=== PATIENT | female | born 1960 | race Caucasian/White ===

== ENCOUNTER 2019-01-11 12:21 | Outpatient (CLI) | payer MEDICARE ==
--- NOTE | 2019-01-11 14:51 | MMO ---
Bilateral MAMMO Bilat Screen [facility]. CLINICAL HISTORY: Patient is 58 years old and is seen for screening. The patient has no family history of breast cancer. The patient has no personal history of cancer. VIEWS: The views performed were: bilateral craniocaudal; bilateral craniocaudal with tomosynthesis; and bilateral mediolateral oblique with tomosynthesis. FILMS COMPARED: The present examination has been compared to a prior imaging study performed at [facility] on 10/07/2016. This study has been interpreted with the assistance of computer-aided detection. MAMMOGRAM FINDINGS: There are scattered fibroglandular densities. There are stable benign appearing calcifications seen in both breasts. There are no suspicious masses, calcifications or areas of architectural distortion. There are no suspicious masses, suspicious calcifications, or new areas of architectural distortion. IMPRESSION: THERE IS NO MAMMOGRAPHIC EVIDENCE OF MALIGNANCY. A ROUTINE FOLLOW-UP MAMMOGRAM IN 1 YEAR IS RECOMMENDED. THE RESULTS OF THIS EXAM WERE SENT TO THE PATIENT. ACR BI-RADS Category 2 - Benign finding MAMMOGRAPHY NOTE: 1. A negative mammogram report should not delay a biopsy if a dominant of clinically suspicious mass is present. 2. Approximately 10% to 15% of breast cancers are not detected by mammography. 3. Adenosis and dense breasts may obscure an underlying neoplasm. Reported by: HUY DAVIES MD Electonically Signed: [id number]
== END 2019-01-11 12:22 | disposition home or self-care (01) ==
LOC: BICMAMMO 12:21
PROVIDERS: ATTEND Family Medicine
DX: Z12.31 Encounter for screening mammogram for malignant neoplasm of breast (principal)
CPT/HCPCS: 77063; 77067

== ENCOUNTER 2021-06-21 14:04 | Outpatient (CLI) | payer MEDICARE | END 2021-06-21 14:05 | disposition home or self-care (01) | LOC: BICRAD 14:04 | PROVIDERS: ATTEND Family Medicine | DX: R06.02 Shortness of breath (principal) | CPT/HCPCS: 36415; 71046; 80053; 80061; 82306; 83036; 84439; 84443; 86140 ==

== ENCOUNTER 2021-11-11 13:30 | Outpatient (CLI) | payer MEDICARE | END 2021-11-11 13:31 | disposition home or self-care (01) | LOC: DTY/OP 13:30 | PROVIDERS: ATTEND Surgery | DX: Z01.818 Encounter for other preprocedural examination (principal); E11.69 Type 2 diabetes mellitus with other specified complication; E88.81 Metabolic syndrome and other insulin resistance; K21.9 Gastro-esophageal reflux disease without esophagitis; K44.9 Diaphragmatic hernia without obstruction or gangrene; K76.0 Fatty (change of) liver, not elsewhere classified; G47.33 Obstructive sleep apnea (adult) (pediatric); I10 Essential (primary) hypertension; E66.9 Obesity, unspecified; Z68.37 Body mass index [BMI] 37.0-37.9, adult; Z98.84 Bariatric surgery status; Z71.3 Dietary counseling and surveillance | CPT/HCPCS: 97802 ==

== ENCOUNTER 2022-01-30 10:38 | Outpatient (CLI) | payer OTHER | END 2022-01-30 10:39 | disposition home or self-care (01) | LOC: RAD 10:38 | PROVIDERS: ATTEND Internal Medicine | DX: R06.00 Dyspnea, unspecified (principal) | CPT/HCPCS: 71046 ==

== ENCOUNTER 2022-05-15 14:20 | Outpatient (CLI) | payer MEDICARE | END 2022-05-15 14:21 | disposition home or self-care (01) | LOC: BICMAMMO 14:20 | PROVIDERS: ATTEND Family Medicine | DX: Z12.31 Encounter for screening mammogram for malignant neoplasm of breast (principal); Z13.820 Encounter for screening for osteoporosis; M85.852 Other specified disorders of bone density and structure, left thigh; Z78.0 Asymptomatic menopausal state | CPT/HCPCS: 77063; 77067; 77080 ==

== ENCOUNTER 2022-05-19 15:24 | Outpatient (CLI) | payer MEDICARE | END 2022-05-19 15:25 | disposition home or self-care (01) | LOC: BICRAD 15:24 | PROVIDERS: ATTEND Family Medicine | DX: M25.562 Pain in left knee (principal); M17.12 Unilateral primary osteoarthritis, left knee ==

== ENCOUNTER 2022-06-09 15:43 | Inpatient (IN) | payer MEDICARE ==
[2022-06-23] MEDS ORDERED: Scopolamine 1.5 mg/72 hour Patch ONE (06:30)
[2022-06-23] MEDS ORDERED: cefOXitin 2 GM VIAL ONE ×2 (06:30→11:49)
[2022-06-23] MEDS ORDERED: Sodium Chloride 0.9% 100 ML ONE (06:30)
[2022-06-23] MEDS ORDERED: Bupivacaine/Epinephrine 0.25% 30 ML VIAL ONE (06:42)
[2022-06-23] MEDS ORDERED: Scopolamine 1.5 mg/72 hour Patch TOP SCH (06:45)
[2022-06-23] MEDS ORDERED: cefOXitin 2 GM in Sodium Chloride 0.9% 100 ML IVPB SCH (06:45)
[2022-06-23] MEDS ORDERED: HYDROmorphone 0.5 MG/0.5 ML SYRINGE ONE (06:55)
[2022-06-23] MEDS ORDERED: fentaNYL PF 100 MCG/2 ML SYRINGE ONE (06:55)
[2022-06-23] MEDS ORDERED: SUGAMMADEX SODIUM 200 MG/2 ML VIAL ONE (06:56)
[2022-06-23] MEDS ORDERED: Famotidine/PF 20 mg/2ml Vial ONE (07:26)
[2022-06-23] MEDS ORDERED: Indocyanine Green 25 MG/10 ML VIAL ONE ×2 (09:11→11:15)
[2022-06-23] MEDS ORDERED: PROPOFOL 200 MG/20 ML VIAL ONE (09:11)
[2022-06-23] MEDS ORDERED: Dexamethasone 20 MG/5 ML VIAL ONE (09:11)
[2022-06-23] MEDS ORDERED: Lidocaine 1% PF 5 ML VIAL ONE (09:11)
[2022-06-23] MEDS ORDERED: Rocuronium Bromide 10 MG/ML (10ML VIAL) ONE (09:11)
[2022-06-23] MEDS ORDERED: Ondansetron PF 4 MG/2 ML Vial ONE (09:11)
[2022-06-23] MEDS ORDERED: Promethazine HCl 25 MG/ML VIAL IM PRN ×2 (13:36→13:58)
[2022-06-23] MEDS ORDERED: HYDROmorphone 2 MG/ML VIAL SLOW IVP PRN (13:36)
[2022-06-23] MEDS ORDERED: Ondansetron HCl/PF 4 MG/2 ML Vial IVP PRN (13:36)
[2022-06-23] MEDS ORDERED: Dextrose 5% in Water 1,000 ML IV PRN (13:58)
[2022-06-23] MEDS ORDERED: Ondansetron PF 4 MG/2 ML Vial IVP PRN (13:58)
[2022-06-23] MEDS ORDERED: Dextrose 50% Abboject 50 ML SYRINGE SLOW IVP PRN (13:58)
[2022-06-23] MEDS ORDERED: HumaLOG 300 UNITS/3 ML VIAL SC PRN (13:58)
[2022-06-23] MEDS ORDERED: Morphine 2 MG/ML VIAL SLOW IVP PRN (13:58)
[2022-06-23] MEDS ORDERED: hydrALAZINE 20 MG/ML VIAL SLOW IVP PRN (13:58)
[2022-06-23] MEDS ORDERED: Ipratropium/Albuterol 3 ML NEB NEB PRN (13:58)
[2022-06-23] MEDS ORDERED: diphenhydrAMINE 50 MG/ML VIAL IVP PRN (13:58)
[2022-06-23] MEDS ORDERED: Hydrocodone-Acetamin 15 ML UDCUP PO PRN (13:58)
[2022-06-23] MEDS: Ketorolac Tromethamine 30 MG/ML VIAL IVP SCH ×2 (17:51→23:11)
[2022-06-23] MEDS: D5 1/2 NS w/20 mEq KCL 1,000 ML IV SCH ×2 (18:12→19:41)
[2022-06-23 18:38] VITALS: BMI 34.9
[2022-06-24] MEDS: D5 1/2 NS w/20 mEq KCL 1,000 ML IV SCH (05:27)
[2022-06-24] MEDS: Ketorolac Tromethamine 30 MG/ML VIAL IVP SCH (05:34)
[2022-06-24 06:27] LABS: #Eosinphils 0.1 thou/uL (0.0-0.7); #Lymphocytes 2.4 thou/uL (1.20-3.40); #Neutrophils 6.2 thou/uL (1.40-6.50); %Basophils 0.4 % (0.0-1.0); %Eosinophils 0.5 % (0.0-10.0); %Lymphocytes 24.5 % (21.0-51.0); %Monocytes 9.9 % (0.0-10.0); %Neutrophils 64.6 % (42.0-75.0); Hemoglobin 12.2 g/dL (12.0-16.0); Mean Corpuscular HGB CONC 32.8 g/dL (32.0-36.0); Mean Corpuscular Hemoglobin 28.4 pg (27.0-31.0); Mean Corpuscular Volume 86.6 fl (78.0-98.0); Mean Platelet Volume 7.3 fL (7.4-10.4); Platelet Count 200 10x3/uL (130-400); RBC Distribution Width 12.9 % (11.5-14.5); Red Blood Cell (RBC) Count 4.31 mill/uL (4.20-5.40); White Blood Cell (WBC) Count 9.7 10x3/uL (4.8-10.8)
[2022-06-24 06:47] LABS: Anion Gap 14 mmol/L (10-20); BUN (Urea Nitrogen) 34 mg/dL (9.8-20.1); Calc. Creatinine Clearance 61 mL/min (70-130); Calcium 8.6 mg/dL (7.8-10.44); Carbon Dioxide 24 mmol/L (23-31); Chloride 106 mmol/L (98-107); Estimated GFR 37; Glucose 77 mg/dL (80-115); Potassium 4.6 mmol/L (3.5-5.1); Sodium 139 mmol/L (136-145)
[2022-06-24] MEDS ORDERED: Pantoprazole 40 MG VIAL IVP SCH (09:00)
[2022-06-24] MEDS ORDERED: Sertraline 100 MG TAB PO SCH (09:00)
[2022-06-24] MEDS ORDERED: Bupropion 150 MG XL TAB PO SCH (09:00)
[2022-06-24 13:01] VITALS: BP 114/67; TEMP 97.6
[2022-06-24 13:07] LABS: #Eosinphils 0.1 thou/uL (0.0-0.7); #Lymphocytes 2.3 thou/uL (1.20-3.40); #Monocytes 0.9 thou/uL (0.11-0.59); #Neutrophils 6.6 thou/uL (1.40-6.50); %Basophils 0.5 % (0.0-1.0); %Eosinophils 0.7 % (0.0-10.0); %Lymphocytes 23.1 % (21.0-51.0); %Monocytes 8.8 % (0.0-10.0); %Neutrophils 66.9 % (42.0-75.0); Hemoglobin 12.3 g/dL (12.0-16.0); Mean Corpuscular HGB CONC 33.4 g/dL (32.0-36.0); Mean Corpuscular Hemoglobin 28.8 pg (27.0-31.0); Mean Corpuscular Volume 86.3 fl (78.0-98.0); Mean Platelet Volume 7.1 fL (7.4-10.4); Platelet Count 182 10x3/uL (130-400); RBC Distribution Width 12.8 % (11.5-14.5); Red Blood Cell (RBC) Count 4.26 mill/uL (4.20-5.40); White Blood Cell (WBC) Count 9.8 10x3/uL (4.8-10.8)
[2022-06-24 13:23] LABS: Anion Gap 10 mmol/L (10-20); BUN (Urea Nitrogen) 32 mg/dL (9.8-20.1); Calc. Creatinine Clearance 65 mL/min (70-130); Calcium 8.7 mg/dL (7.8-10.44); Carbon Dioxide 25 mmol/L (23-31); Chloride 107 mmol/L (98-107); Estimated GFR 40; Glucose 99 mg/dL (80-115); Potassium 4.4 mmol/L (3.5-5.1); Sodium 138 mmol/L (136-145)
== END 2022-06-24 16:03 | disposition home or self-care (01) | DRG 621 ==
LOC: EDSTATUS 15:44 → SURG A 06-23 06:00
PROVIDERS: ADMIT Surgery; ATTEND Surgery
PROC: 0D164ZA Bypass Stomach to Jejunum, Percutaneous Endoscopic Approach (ICD-10-PCS; principal; 2022-06-23)
PROC: 0DNW4ZZ Release Peritoneum, Percutaneous Endoscopic Approach (ICD-10-PCS; 2022-06-23)
PROC: 8E0W4CZ Robotic Assisted Procedure of Trunk Region, Percutaneous Endoscopic Approach (ICD-10-PCS; 2022-06-23)
DX: E66.01 Morbid (severe) obesity due to excess calories (principal); E88.81 Metabolic syndrome and other insulin resistance; E11.9 Type 2 diabetes mellitus without complications; E78.5 Hyperlipidemia, unspecified; I10 Essential (primary) hypertension; Z79.82 Long term (current) use of aspirin; Z79.4 Long term (current) use of insulin; Z68.35 Body mass index [BMI] 35.0-35.9, adult; Z79.899 Other long term (current) drug therapy
CPT/HCPCS: 36415; 36416; 80048; 85025; C9113; J0694; J1100; J1170; J1650; J1815; J1885; J2405; J2704; J3480; J3490; S0028

== ENCOUNTER 2022-06-19 11:20 | Outpatient (CLI) | payer MEDICARE ==
[2022-06-19 13:02] LABS: Albumin 4.5 g/dL (3.4-4.8); Anion Gap 15 mmol/L (10-20); BUN (Urea Nitrogen) 38 mg/dL (9.8-20.1); Calc. Creatinine Clearance 0 mL/min (70-130); Calcium 9.7 mg/dL (7.8-10.44); Carbon Dioxide 23 mmol/L (23-31); Chloride 105 mmol/L (98-107); Estimated GFR 41; Glucose 139 mg/dL (80-115); Potassium 5.2 mmol/L (3.5-5.1); Sodium 138 mmol/L (136-145)
[2022-06-19 17:05] LABS: Hemoglobin A1c 7.1 % (4.0-6.0)
== END 2022-06-19 11:21 | disposition home or self-care (01) ==
LOC: LABBT 11:20
PROVIDERS: ATTEND Surgery
DX: Z01.818 Encounter for other preprocedural examination (principal); K21.9 Gastro-esophageal reflux disease without esophagitis; G47.33 Obstructive sleep apnea (adult) (pediatric); E11.9 Type 2 diabetes mellitus without complications; E66.01 Morbid (severe) obesity due to excess calories; E88.81 Metabolic syndrome and other insulin resistance; I10 Essential (primary) hypertension; Z68.37 Body mass index [BMI] 37.0-37.9, adult
CPT/HCPCS: 80048; 82040; 83036; 85014; 93005; 93010

== ENCOUNTER 2023-02-03 12:13 | Outpatient (CLI) | payer MEDICARE | END 2023-02-03 12:14 | disposition home or self-care (01) | LOC: BICMRI 12:13 | PROVIDERS: ATTEND Family Medicine | DX: M25.511 Pain in right shoulder (principal); M19.011 Primary osteoarthritis, right shoulder; M75.111 Incomplete rotator cuff tear or rupture of right shoulder, not specified as traumatic; M67.813 Other specified disorders of tendon, right shoulder | CPT/HCPCS: 70210 ==

== ENCOUNTER 2024-01-16 11:50 | Observation (INO) | payer MEDICARE ==
[2024-01-16] MEDS ORDERED: Aspirin Chewable 81 MG TAB ONE (12:25)
[2024-01-16 12:43] LABS: #Basophils 0.05 10x3/uL (0.0-0.2); %Basophils 0.6 % (0.0-1.0); %Eosinophils 3.7 % (0.0-10.0); %Lymphocytes 46.4 % (21.0-51.0); %Monocytes 6.8 % (0.0-10.0); %Neutrophils 42.3 % (42.0-75.0); Hematocrit 38.4 % (36.0-47.0); Hemoglobin 13.7 g/dL (12.0-16.0); Mean Corpuscular HGB CONC 35.7 g/dL (32.0-36.0); Mean Corpuscular Hemoglobin 29.3 pg (27.0-31.0); Mean Corpuscular Volume 82.1 fL (78.0-98.0); Mean Platelet Volume 9.7 fL (7.4-10.4); Platelet Count 245 10x3/uL (130-400); RBC Distribution Width 12.1 % (11.5-14.5); Red Blood Cell (RBC) Count 4.68 mill/uL (4.20-5.40)
[2024-01-16 13:06] LABS: ALT (SGPT) 41 U/L (8-55); AST (SGOT) 30 U/L (5-34); Alkaline Phosphatase 143 U/L (40-110); Anion Gap 17 mmol/L (10-20); BUN (Urea Nitrogen) 18 mg/dL (9.8-20.1); Bilirubin, Total 0.6 mg/dL (0.2-1.2); Calc. Creatinine Clearance 0 mL/min (70-130); Calcium 9.1 mg/dL (7.8-10.44); Carbon Dioxide 17 mmol/L (23-31); Chloride 108 mmol/L (98-107); Estimated GFR 94; Globulin 2.8 g/dL (2.4-3.5); Glucose 134 mg/dL (80-115); Lipase 21 U/L (8-78); Magnesium 1.6 mg/dL (1.6-2.6); Potassium 4.1 mmol/L (3.5-5.1); Protein, Total 6.8 g/dL (5.8-8.1); Sodium 138 mmol/L (136-145)
[2024-01-16 13:13] LABS: Troponin I Less than 0.010 ng/mL (< 0.028)
[2024-01-16 13:44] LABS: Bacteria/HPF 4+ HPF (None Seen); Bilirubin Negative (Negative); Blood, Urine Negative (Negative); CAUTI Indications for Culture Alt mental st,lethar; Glucose, Urine (Dipstick) Normal (Negative); Ketone, Urine Negative (Negative); Leukocyte 250 Leu/uL (Negative); Nitrite Negative (Negative); Protein, Urine (Dipstick) Negative (Neg-Trace); RBC/HPF 0-3 HPF (0-3); Specific Gravity, Urine 1.013 (1.002-1.036); Urobilinogen Normal mg/dL (Less than 2); pH, Urine 5.5 (5.0-9.0)
[2024-01-16 13:58] LABS: Calcium Oxalate Crystals 2+ HPF (None Seen); Clarity Cloudy (Clear)
[2024-01-16 13:59] LABS: Urine Culture Reflex Yes Yes
[2024-01-16] MEDS ORDERED: Ondansetron PF 4 MG/2 ML Vial IVP PRN (16:00)
[2024-01-16] MEDS ORDERED: Guaifenesin DM 100-10/5 ML UDCUP PO PRN (16:00)
[2024-01-16] MEDS ORDERED: Nitroglycerin 0.4 MG TAB (25 Tab Bottle) SL PRN (16:00)
[2024-01-16] MEDS ORDERED: Senokot S 8.6-50 MG TAB PO PRN (16:00)
[2024-01-16] MEDS ORDERED: Insulin Regular, Human 100 UNIT/ML 10 ML VIAL SC PRN (16:05)
[2024-01-16] MEDS ORDERED: Dextrose 5% in Water 1,000 ML IV PRN (16:05)
[2024-01-16] MEDS ORDERED: Dextrose 50% Abboject 50 ML SYRINGE SLOW IVP PRN (16:05)
[2024-01-16] MEDS ORDERED: Glucagon 1 MG/ML KIT IM PRN (16:05)
[2024-01-16 16:59] LABS: Troponin I Less than 0.010 ng/mL (< 0.028)
[2024-01-16 17:17] VITALS: BMI 25.6
[2024-01-16 19:18] LABS: Troponin I Less than 0.010 ng/mL (< 0.028)
[2024-01-16] MEDS: Acetaminophen 325 MG TAB PO PRN (21:00)
[2024-01-17 04:39] LABS: #Basophils 0.06 10x3/uL (0.0-0.2); %Basophils 0.8 % (0.0-1.0); %Eosinophils 4.4 % (0.0-10.0); %Lymphocytes 46.4 % (21.0-51.0); %Monocytes 6.9 % (0.0-10.0); %Neutrophils 41.2 % (42.0-75.0); Hematocrit 38.7 % (36.0-47.0); Hemoglobin 13.4 g/dL (12.0-16.0); Mean Corpuscular HGB CONC 34.6 g/dL (32.0-36.0); Mean Corpuscular Hemoglobin 29.8 pg (27.0-31.0); Mean Corpuscular Volume 86.2 fL (78.0-98.0); Mean Platelet Volume 9.6 fL (7.4-10.4); Platelet Count 219 10x3/uL (130-400); RBC Distribution Width 12.2 % (11.5-14.5); Red Blood Cell (RBC) Count 4.49 mill/uL (4.20-5.40)
[2024-01-17 04:58] LABS: Anion Gap 12 mmol/L (10-20); BUN (Urea Nitrogen) 13 mg/dL (9.8-20.1); Calc. Creatinine Clearance 99 mL/min (70-130); Calcium 8.7 mg/dL (7.8-10.44); Carbon Dioxide 21 mmol/L (23-31); Cardiac Risk 4.7 (Less than 4.5); Chloride 109 mmol/L (98-107); Cholesterol 185 mg/dl (< 200 Desired); Estimated GFR 97; Glucose 109 mg/dL (80-115); HDL Cholesterol 39 mg/dL (>60 Neg Risk); LDL Cholesterol, Calculated 120 mg/dL; Potassium 3.8 mmol/L (3.5-5.1); Sodium 138 mmol/L (136-145); Triglycerides 131 mg/dL (Less than 150)
[2024-01-17 05:09] LABS: Hemoglobin A1c 5.8 % (4.0-6.0)
[2024-01-17] MEDS: Aspirin Chewable 81 MG TAB PO SCH (08:33)
[2024-01-17] MEDS: Enoxaparin 40 MG (0.4 mL) SYRINGE SC SCH (08:33)
[2024-01-17] MEDS ORDERED: Regadenoson 0.4 MG/5 ML SYRINGE ONE (13:01)
[2024-01-18 03:45] VITALS: TEMP 98.1
[2024-01-18 05:41] LABS: #Basophils 0.05 10x3/uL (0.0-0.2); %Basophils 0.6 % (0.0-1.0); %Eosinophils 4.1 % (0.0-10.0); %Monocytes 9.1 % (0.0-10.0); Hemoglobin 12.6 g/dL (12.0-16.0); Mean Corpuscular Hemoglobin 29.6 pg (27.0-31.0); Mean Corpuscular Volume 84.5 fL (78.0-98.0); Mean Platelet Volume 9.8 fL (7.4-10.4); Platelet Count 219 10x3/uL (130-400); RBC Distribution Width 12.2 % (11.5-14.5); Red Blood Cell (RBC) Count 4.26 mill/uL (4.20-5.40)
[2024-01-18 06:12] LABS: Anion Gap 12 mmol/L (10-20); BUN (Urea Nitrogen) 11 mg/dL (9.8-20.1); Calc. Creatinine Clearance 98 mL/min (70-130); Calcium 8.8 mg/dL (7.8-10.44); Carbon Dioxide 22 mmol/L (23-31); Chloride 110 mmol/L (98-107); Estimated GFR 96; Glucose 123 mg/dL (80-115); Potassium 3.7 mmol/L (3.5-5.1); Sodium 140 mmol/L (136-145)
[2024-01-18 08:10] VITALS: BP 130/67
[2024-01-18] MEDS: FLU (Fluad Triv) TS24-25 (65UP)/MF59C/PF 45 MCG/0.5 ML Syringe IM ONE (08:13)
== END 2024-01-18 10:06 | disposition left against medical advice (07) ==
LOC: ERS 11:50 → OBS 16:00
PROVIDERS: ADMIT Hospitalist; ATTEND Hospitalist
DX: R07.89 Other chest pain (principal); M79.602 Pain in left arm; I10 Essential (primary) hypertension; E11.9 Type 2 diabetes mellitus without complications; F32.9 Major depressive disorder, single episode, unspecified; Z98.84 Bariatric surgery status; Z87.891 Personal history of nicotine dependence; Z88.8 Allergy status to other drugs, medicaments and biological substances; Z79.84 Long term (current) use of oral hypoglycemic drugs; Z79.82 Long term (current) use of aspirin; Z79.899 Other long term (current) drug therapy
CPT/HCPCS: 71045; 73030; 78452; 80048 ×2; 80053; 80061; 81001; 82962 ×3; 83036; 83690; 83735; 84484 ×2; 85025 ×3; 87077; 87086; 87186; 93005; 93017; 94760 ×2; 96372 ×2; 99285; A9500; G0378 ×4; J1650 ×2; 36415; 36416; J2785